=== PATIENT | female | born 2000 | race Caucasian/White ===

== ENCOUNTER 2021-04-15 18:36 | Emergency (ER) | payer OTHER ==
[~2021-04-15] VITALS: Ht 167.6 cm; Wt 68.0 kg
[2021-04-15] MEDS ORDERED: ZOFRAN ODT4 MG PO (20:01)
[2021-04-15 20:11] VITALS: BP 141/70
== END 2021-04-15 20:12 | disposition home or self-care (01) ==
LOC: M.ERS 18:36
DX: S09.8XXA Other specified injuries of head, initial encounter (principal); M54.2 Cervicalgia; M54.5 Low back pain; R11.0 Nausea; V49.3XXA Car occupant (driver) (passenger) injured in unspecified nontraffic accident, initial encounter; Y93.89 Activity, other specified; Y92.89 Other specified places as the place of occurrence of the external cause; Y99.8 Other external cause status